=== PATIENT | female | born 1945 | race Caucasian/White ===

== ENCOUNTER → 2017-07-09 | Outpatient (CLI) | payer MEDICARE | END | disposition home or self-care (01) | LOC: EKG 14:42 | DX: I49.9 Cardiac arrhythmia, unspecified (principal); R94.31 Abnormal electrocardiogram [ECG] [EKG] | CPT/HCPCS: 93005 ==

== ENCOUNTER → 2017-07-23 | Outpatient (CLI) | payer MEDICARE ==
[2017-07-23 10:18] LABS: ADD MAN DIFF? NO
[2017-07-23 10:23] LABS: BASO % 0 % (0-3); EOS # 0.6 x10^3/uL (0.0-0.7); EOS % 6 % (0-3); HEMATOCRIT 46.5 % (36.0-47.0); LYMPH # 1.8 x10^3/uL (1.0-4.8); LYMPH % 18 % (24-48); MEAN CORPUSCULAR HEMOGLOBIN 31 pg (25-35); MEAN CORPUSCULAR HGB CONC 34 g/dL (31-37); MEAN CORPUSCULAR VOLUME 89 fL (79-100); MONO # 0.8 x10^3/uL (0.0-1.1); MONO % 8 % (0-9); NEUT # 6.7 x10^3uL (1.8-7.7); NEUT % 67 % (31-73); PLATELET COUNT 279 x10^3/uL (140-400); RED BLOOD COUNT 5.24 x10^6/uL (3.50-5.40); RED CELL DISTRIBUTION WIDTH 13.3 % (11.5-14.5); WHITE BLOOD COUNT 10.1 x10^3/uL (4.0-11.0)
[2017-07-23 10:34] LABS: ALBUMIN 3.4 g/dL (3.4-5.0); ANION GAP 6 (6-14); BLOOD UREA NITROGEN 13 mg/dL (7-20); CALCIUM 9.5 mg/dL (8.5-10.1); CARBON DIOXIDE 32 mmol/L (21-32); CHLORIDE 103 mmol/L (98-107); CREATININE 0.8 mg/dL (0.6-1.0); GFR 70.7; GLUCOSE 141 mg/dL (70-99); POTASSIUM 4.4 mmol/L (3.5-5.1); SODIUM 141 mmol/L (136-145)
[2017-07-23 10:37] LABS: PARTIAL THROMBOPLASTIN TIME 27 SEC (24-38)
[2017-07-23 12:04] LABS: SEDIMENTATION RATE 27 (0-25)
[2017-07-23 13:52] LABS: BILIRUBIN,URINE SMALL (NEG); GLUCOSE,URINE NEGATIVE (NEG); NITRITE,URINE NEGATIVE (NEG); PROTEIN,URINE NEGATIVE (NEG-TRACE)
[2017-07-23 14:07] LABS: CLARITY,URINE CLEAR; COLOR,URINE DK YELLOW
[2017-07-23 14:09] LABS: BACTERIA,URINE FEW /HPF (0-FEW); RBC,URINE 0 /HPF (0-2); SQUAMOUS EPITHELIAL CELL,UR FEW /LPF
[2017-07-23 21:09] LABS: MRSA BY PCR Negative (Negative)
== END | disposition home or self-care (01) ==
LOC: SURGPAT 14:13
DX: Z01.818 Encounter for other preprocedural examination (principal); I51.7 Cardiomegaly; I70.0 Atherosclerosis of aorta; R79.89 Other specified abnormal findings of blood chemistry
CPT/HCPCS: 36415; 71046; 80048; 81001; 82040; 82306; 85025; 85610; 85651; 85730; 87086; 87641

== ENCOUNTER → 2017-07-27 | Outpatient (CLI) | payer MEDICARE | END | disposition home or self-care (01) | LOC: ECHO 07:41 | DX: Z01.818 Encounter for other preprocedural examination (principal); I36.1 Nonrheumatic tricuspid (valve) insufficiency; I51.7 Cardiomegaly | CPT/HCPCS: 93306 ==

== ENCOUNTER 2017-08-14 06:47 | Inpatient (IN) | payer MEDICARE ==
[2017-08-14] MEDS ORDERED: LIDOCAINE 1% PF 2 ML VIAL. ID (07:00)
[2017-08-14] MEDS ORDERED: PROCHLORPERAZINE 10 MG/2 ML VIAL. IV ×2 (07:00→12:00)
[2017-08-14] MEDS ORDERED: fentaNYL PF VIAL 100 MCG/2 ML VIAL IV ×3 (07:00→12:00)
[2017-08-14] MEDS ORDERED: ONDANSETRON PF 4 MG/2 ML VIAL. IV (07:00)
[2017-08-14] MEDS: CELECOXIB 200 MG CAPSULE. PO ×2 (07:54→20:25)
[2017-08-14] MEDS: HYDROcodone/APAP 7.5/325MG 1 TAB TABLET PO ×2 (07:56→20:25)
[2017-08-14] MEDS: IV RINGERS,LACTATED 1000ML 1,000 ML IV (07:57)
[2017-08-14] MEDS ORDERED: PROPOFOL 20 ML IV ×2 (08:40→11:23)
[2017-08-14] MEDS ORDERED: fentaNYL PF VIAL 100 MCG/2 ML VIAL ×2 (08:40→10:32)
[2017-08-14] MEDS ORDERED: LIDOCAINE 1% PF 5 ML VIAL. (08:40)
[2017-08-14] MEDS ORDERED: ONDANSETRON PF 4 MG/2 ML VIAL. (09:38)
[2017-08-14] MEDS ORDERED: DEXAMETHASONE SOD PHOS 20 MG/5 ML VIAL. (09:38)
[2017-08-14] MEDS: TRANEXAMIC ACID 1,000 MG in IV NS 50ML -- 1ST BAG INJ (09:50)
[2017-08-14] MEDS: ceFAZolin SODIUM IV Push 1 GM VIAL. IVP (09:58)
[2017-08-14] MEDS: TOBRAMYCIN POWDER 1.2 GM VIAL. (10:32)
[2017-08-14] MEDS: VANCOMYCIN 1 GM VIAL. (10:33)
[2017-08-14] MEDS: TRANEXAMIC ACID 1,000 MG in IV NS 50ML -- 2ND BAG INJ (11:07)
[2017-08-14] MEDS ORDERED: SEVOFLURANE 61 TO 120 MINUTES. IH (11:21)
[2017-08-14] MEDS ORDERED: METOCLOPRAMIDE HCL 10 MG/2 ML VIAL. IV (12:00)
[2017-08-14] MEDS ORDERED: oxyCODONE/APAP 5/325 1 TAB TABLET PO (12:00)
[2017-08-14] MEDS ORDERED: ZOLPIDEM 5 MG TABLET. PO (12:00)
[2017-08-14] MEDS ORDERED: DEXTROSE 50% 25 GM / 50ML DISP.SYRIN. IV (12:00)
[2017-08-14] MEDS ORDERED: ACETAMINOPHEN 325 MG TABLET. PO (12:00)
[2017-08-14] MEDS ORDERED: CALCIUM CARBONATE 500 MG TAB.CHEW PO (12:00)
[2017-08-14] MEDS ORDERED: MORPHINE SULFATE 10 MG/ML VIAL. IV (12:00)
[2017-08-14] MEDS ORDERED: MORPHINE SULFATE 4 MG/ML DISP.SYRIN. IV ×3 (12:00)
[2017-08-14] MEDS ORDERED: traMADol 50 MG TABLET PO ×2 (12:00)
[2017-08-14] MEDS ORDERED: oxyCODONE/APAP 7.5/325 1 TAB TABLET PO (12:00)
[2017-08-14] MEDS ORDERED: PROCHLORPERAZINE 5 MG TABLET. PO (12:00)
[2017-08-14] MEDS ORDERED: 0.9 % SODIUM CHLORIDE 10 ML DISP.SYRIN. IV (12:00)
[2017-08-14] MEDS ORDERED: diphenhydrAMINE 50 MG/ML VIAL IV (12:00)
[2017-08-14] MEDS: MORPHINE SULFATE 4 MG/ML DISP.SYRIN. IV (12:09)
[2017-08-14] MEDS ORDERED: IPRATRPIUM/ALBUTEROL 0.5/2.5MG 3 ML NEBU. (12:22)
[2017-08-14] MEDS ORDERED: diphenhydrAMINE 50 MG/ML VIAL (12:22)
[2017-08-14] MEDS ORDERED: IPRATRPIUM/ALBUTEROL 0.5/2.5MG 3 ML NEBU. NEB (12:30)
[2017-08-14] MEDS: ceFAZolin SODIUM 3 GM in IV DEXTROSE 5% 100 ML IV ×2 (16:43→22:45)
[2017-08-14] MEDS: SCOPOLAMINE 1.5MG PATCH. TD (16:43)
[2017-08-14] MEDS: fentaNYL PF VIAL 100 MCG/2 ML VIAL IV (16:47)
[2017-08-14] MEDS: CHOLECALCIFEROL (VITAMIN D3) 1,000 UNIT TABLET PO (17:35)
[2017-08-14] MEDS: FERROUS SULFATE 325 MG TABLET. PO (17:35)
[2017-08-14] MEDS: MULTIVITAMIN with MINERAL TABLET. PO (17:35)
[2017-08-14] MEDS: SENNOSIDES/DOCUSATE 8.6/50MG TABLET. PO (17:35)
[2017-08-14] MEDS: KETOROLAC 30 MG, BUPIVACAINE MPF 0.25% 20 ML, EPINEPHrine 0.5 MG in TOTAL VOLUME SYRING... INT ART (18:36)
[2017-08-14] MEDS: ASPIRIN ENTERIC COATED 325 MG TABLET.DR. PO (20:25)
[2017-08-14] MEDS: MORPHINE SULFATE 5 MG, KETOROLAC 30 MG, ROPIVacaine 0.5% PF 60 ML, EPINEPHrine 0.5 MG i... INT ART (20:27)
[2017-08-14] MEDS: IV DEXTROSE 5 %-0.45 % NACL 1,000 ML IV ×2 (20:27→20:57)
[2017-08-14] MEDS: diphenhydrAMINE 50 MG/ML VIAL IVP (21:04)
[2017-08-14 21:22] LABS: POC GLUCOSE 203 mg/dL (70-99)
[2017-08-15] MEDS: ceFAZolin SODIUM 3 GM in IV DEXTROSE 5% 100 ML IV (04:14)
[2017-08-15] MEDS ORDERED: MAGNESIUM HYDROXIDE 2,400 MG/30 ML ORAL.SUSP. PO (06:00)
[2017-08-15] MEDS: KETOROLAC 30 MG, BUPIVACAINE MPF 0.25% 20 ML, EPINEPHrine 0.5 MG in TOTAL VOLUME SYRING... INT ART (06:08)
[2017-08-15 07:48] LABS: HEMATOCRIT 42.8 % (36.0-47.0); HEMOGLOBIN 14.4 g/dL (12.0-15.5); MEAN CORPUSCULAR HGB CONC 34 g/dL (31-37)
[2017-08-15] MEDS: ASPIRIN ENTERIC COATED 325 MG TABLET.DR. PO ×2 (08:31→20:55)
[2017-08-15] MEDS: CELECOXIB 200 MG CAPSULE. PO ×2 (08:31→20:55)
[2017-08-15] MEDS: CHOLECALCIFEROL (VITAMIN D3) 1,000 UNIT TABLET PO (08:31)
[2017-08-15] MEDS: FERROUS SULFATE 325 MG TABLET. PO ×2 (08:31→16:57)
[2017-08-15] MEDS: HYDROcodone/APAP 7.5/325MG 1 TAB TABLET PO ×4 (08:31→20:55)
[2017-08-15] MEDS: SENNOSIDES/DOCUSATE 8.6/50MG TABLET. PO (08:31)
[2017-08-15] MEDS: MULTIVITAMIN with MINERAL TABLET. PO (08:31)
[2017-08-15] MEDS ORDERED: BISACODYL 10 MG SUPP.RECT. PR (16:00)
[2017-08-16] MEDS: HYDROcodone/APAP 7.5/325MG 1 TAB TABLET PO ×3 (04:38→17:03)
[2017-08-16 05:26] LABS: MEAN CORPUSCULAR HGB CONC 33 g/dL (31-37)
[2017-08-16] MEDS: ASPIRIN ENTERIC COATED 325 MG TABLET.DR. PO ×2 (08:09→21:09)
[2017-08-16] MEDS: SENNOSIDES/DOCUSATE 8.6/50MG TABLET. PO (08:10)
[2017-08-16] MEDS: CHOLECALCIFEROL (VITAMIN D3) 1,000 UNIT TABLET PO (08:10)
[2017-08-16] MEDS: CELECOXIB 200 MG CAPSULE. PO ×2 (08:10→21:09)
[2017-08-16] MEDS: MULTIVITAMIN with MINERAL TABLET. PO (08:10)
[2017-08-16] MEDS: FERROUS SULFATE 325 MG TABLET. PO ×2 (08:10→17:00)
[2017-08-16] MEDS: HYDROcodone/APAP 10/325 1 TAB TABLET PO ×2 (11:55→21:09)
[2017-08-17] MEDS: HYDROcodone/APAP 10/325 1 TAB TABLET PO (02:42)
[2017-08-17 03:27] LABS: HEMATOCRIT 38.1 % (36.0-47.0); MEAN CORPUSCULAR HGB CONC 34 g/dL (31-37)
[2017-08-17] MEDS: HYDROcodone/APAP 7.5/325MG 1 TAB TABLET PO ×3 (05:45→12:07)
[2017-08-17] MEDS: MULTIVITAMIN with MINERAL TABLET. PO (07:43)
[2017-08-17] MEDS: FERROUS SULFATE 325 MG TABLET. PO (07:43)
[2017-08-17] MEDS: SENNOSIDES/DOCUSATE 8.6/50MG TABLET. PO (07:43)
[2017-08-17] MEDS: CHOLECALCIFEROL (VITAMIN D3) 1,000 UNIT TABLET PO (07:44)
[2017-08-17] MEDS: ASPIRIN ENTERIC COATED 325 MG TABLET.DR. PO (07:44)
[2017-08-17] MEDS: CELECOXIB 200 MG CAPSULE. PO (07:44)
== END 2017-08-17 14:00 | DRG 470 ==
LOC: OPSVCIP 06:47 → 4 SOUTHEST 13:54
PROVIDERS: Orthopaedic Surgery
PROC: 0SRD0J9 Replacement of Left Knee Joint with Synthetic Substitute, Cemented, Open Approach (ICD-10-PCS; principal; 2017-08-14 09:00)
DX: M17.12 Unilateral primary osteoarthritis, left knee (principal); I49.9 Cardiac arrhythmia, unspecified; Z79.899 Other long term (current) drug therapy; Z90.89 Acquired absence of other organs; Z83.2 Family history of diseases of the blood and blood-forming organs and certain disorders involving the immune mechanism; Z83.3 Family history of diabetes mellitus; Z83.6 Family history of other diseases of the respiratory system
CPT/HCPCS: 36415; 73560; 82962; 85014; 85018; 86850; 86900; 86901; 88305; 88311; 97110-GO; 97116-GP; 97150-GP; 97162-GP; 97165-GO; 97530-GP; 97535-GO; C1713; J0171; J0690; J1100; J1885; J2270; J2405; J2704; J2795; J3010; J3260; J3370; J3490; J7120